=== PATIENT | female | born 1960 | race Hispanic/Latino ===

== ENCOUNTER 2018-03-05 16:58 | Observation (INO) | payer OTHER ==
[~2018-03-05] VITALS: Ht 157.5 cm; Wt 95.7 kg
[2018-03-05 18:13] LABS: PREGNANCY TEST, URINE NEGATIVE (NEGATIVE)
[2018-03-05 18:15] LABS: BASOPHILS # (AUTO) 0.1 (0.0-0.1); BASOPHILS % 0.5 % (0.0-1.0); EOSINOPHILS # (AUTO) 0.1 (0.0-0.4); EOSINOPHILS % 0.5 % (0.0-6.0); HEMATOCRIT 43.9 % (34.2-44.1); HEMOGLOBIN 14.4 g/dL (12.0-16.0); LYMPHOCYTES # (AUTO) 1.8 (1.0-3.2); MEAN CORPUSCULAR HEMOGLOBIN 29.6 pg (28-32); MEAN CORPUSCULAR HGB CONC 32.8 g/dL (31-35); MEAN CORPUSCULAR VOLUME 90.1 fL (81-99); MONOCYTES # (AUTO) 0.9 (0.2-0.8); MONOCYTES % 8.5 % (4.4-11.3); NEUTROPHILS # (AUTO) 7.6 (2.1-6.9); NEUTROPHILS % 73.1 % (38.7-80.0); PLATELET COUNT 219 x10e3/uL (140-360); RED BLOOD COUNT 4.87 x10e6/uL (3.6-5.1); RED CELL DISTRIBUTION WIDTH 13.6 % (11.7-14.4)
[2018-03-05 18:21] LABS: ALBUMIN 4.2 g/dL (3.5-5.0); ALBUMIN/GLOBULIN RATIO 0.9 (0.8-2.0); ANION GAP 13.2 mmol/L (8-16); CALCIUM 10.5 mg/dL (8.4-10.2); CREATININE, SERUM 1.04 mg/dL (0.57-1.11); POTASSIUM 4.2 mmol/L (3.5-5.1)
[2018-03-05 18:25] LABS: BILIRUBIN,URINE NEGATIVE (NEGATIVE); CLARITY,URINE SL CLOUDY (CLEAR); COLOR,URINE YELLOW (YELLOW); KETONES,URINE TRACE (NEGATIVE); LEUKOCYTE ESTERASE ,URINE 1+ (NEGATIVE); NITRITE,URINE NEGATIVE (NEGATIVE); PROTEIN,URINE DIPSTICK NEGATIVE (NEGATIVE); URINE UROBILINOGEN 0.2 mg/dL (0.2 - 1)
[2018-03-05 18:26] LABS: BACTERIA,URINE MANY /HPF; EPITHELIAL CELLS,URINE MANY /LPF
[2018-03-05 18:41] LABS: AMYLASE 45 U/L (25-125); LIPASE 14 U/L (8-78)
[2018-03-05] MEDS ORDERED: ASPIRIN 81 MG CHEW TAB PO ONE (19:15)
[2018-03-05 19:27] LABS: CREATINE KINASE 214 IU/L (29-168)
[2018-03-05] MEDS ORDERED: ACETAMINOPHEN 325 MG TAB PO ONE (20:00)
--- NOTE | 2018-03-05 20:26 | Diagnostic Imaging Report ---
CHEST SINGLE (PORTABLE), 03/05/2018 7:11 PM Technique: CHEST SINGLE (PORTABLE) Comparison: None available. Clinical history: \S\upper abd pain, radiates to left chest \S\[id number] \S\1949 Findings: See Impression Impression: 1. Mildly enlarged cardiomediastinal silhouette, accentuated by portable technique. Recommend upright PA and lateral to better assess the mediastinum. 2. No consolidation or edema. No pleural effusion or pneumothorax. Signed by: Dr Kellee Aguirre MD on 03/05/2018 8:22 PM
[2018-03-05] MEDS ORDERED: ONDANSETRON HCL INJ 2 MG/ML VIAL IV PRN (20:45)
--- OUTSIDE RECORDS SUMMARY | 2018-03-05 21:36 | XMS REPORT ---
Author Author [facility] Address Unknown Phone Unavailable Care Team Providers Care Advanced Solutions Architect Name Role Phone MAYRA CORONADO Unavailable Unavailable Problems This patient has no known problems. Allergies, Adverse Reactions, Alerts This patient has no known allergies or adverse reactions. Medications This patient has no known medications. 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 Clinical history: S upper abd pain, radiates to left chest S [id number] S 1949 Findings: See Impression Impression: 1. Mildly enlarged cardiomediastinal silhouette, accentuated by portable technique. Recommend upright PA and lateral to better assess the mediastinum. 2. No consolidation or edema. No pleural effusion or pneumothorax. Signed by: Dr Rowan Aguirre MD on 03/05/2018 8:22 PM Dictated By: ROWAN AGUIRRE MD 21 Transcribed By: DIANA on 03/05/182021 COPY TO: MIRTHA BAH NP
[2018-03-05] MEDS: CEFTRIAXONE SOD 1 GM VIAL IV SCH (21:51)
[2018-03-05] MEDS ORDERED: ONDANSETRON HCL 4 MG ORAL DISINTEGRATING TAB PO PRN (22:00)
[2018-03-05] MEDS ORDERED: ONDANSETRON HCL 4 MG ORAL DISINTEGRATING TAB PO STA (22:00)
[2018-03-05] MEDS ORDERED: ACETAMINOPHEN 325 MG TAB PO PRN (22:15)
[2018-03-05] MEDS ORDERED: MORPHINE SULFATE 2 MG/ML SYR IV PRN (22:15)
[2018-03-05 22:32] VITALS: BP 121/69
[2018-03-05 22:36] VITALS: BP 121/69
[2018-03-05 22:38] VITALS: BP 121/69
[2018-03-06 01:54] LABS: CREATINE KINASE 154 IU/L (29-168)
[2018-03-06 04:00] VITALS: BP 111/66
[2018-03-06 06:02] LABS: BASOPHILS % 0.2 % (0.0-1.0); EOSINOPHILS # (AUTO) 0.1 (0.0-0.4); HEMATOCRIT 40.7 % (34.2-44.1); HEMOGLOBIN 13.2 g/dL (12.0-16.0); LYMPHOCYTES # (AUTO) 2.1 (1.0-3.2); LYMPHOCYTES % 22.4 % (18.0-39.1); MEAN CORPUSCULAR HEMOGLOBIN 29.7 pg (28-32); MEAN CORPUSCULAR HGB CONC 32.4 g/dL (31-35); MEAN CORPUSCULAR VOLUME 91.5 fL (81-99); MONOCYTES % 11.1 % (4.4-11.3); PLATELET COUNT 202 x10e3/uL (140-360); RED BLOOD COUNT 4.45 x10e6/uL (3.6-5.1); RED CELL DISTRIBUTION WIDTH 13.7 % (11.7-14.4)
[2018-03-06 06:25] LABS: ALANINE AMINOTRANSFERASE 22 IU/L (0-55); ALBUMIN 3.6 g/dL (3.5-5.0); ALBUMIN/GLOBULIN RATIO 0.8 (0.8-2.0); ALKALINE PHOSPHATASE 89 IU/L (40-150); ANION GAP 12.3 mmol/L (8-16); BLOOD UREA NITROGEN 14 mg/dL (7-26); BUN/CREATININE RATIO 16 (6-25); CALCIUM 9.9 mg/dL (8.4-10.2); CARBON DIOXIDE 30 mmol/L (22-29); CHLORIDE 103 mmol/L (98-107); CHOL/HDL RATIO 4.2 (3.0-3.6); CHOLESTEROL 226 MD/DL (0-199); CREATININE, SERUM 0.88 mg/dL (0.57-1.11); EST GLOMERULAR FILTRATION RATE > 60 ML/MIN (60-); GLUCOSE 102 mg/dL (74-118); HDL CHOLESTEROL 54 MG/DL (40-60); LDL CHOLESTEROL 156 MG/DL (60-130); POTASSIUM 4.3 mmol/L (3.5-5.1); SODIUM 141 mmol/L (136-145); TRIGLYCERIDES 80 MG/DL (0-149)
[2018-03-06 08:12] VITALS: BP 123/70
[2018-03-06] MEDS: FAMOTIDINE 20 MG TAB PO SCH ×2 (08:15→16:40)
[2018-03-06] MEDS: ASPIRIN 325 MG TAB EC PO SCH (08:15)
[2018-03-06] MEDS: CEFTRIAXONE SOD 1 GM VIAL IV SCH ×2 (08:15→20:44)
--- NOTE | 2018-03-06 08:24 | History and Physical ---
PRIMARY CARE PHYSICIAN: None CHIEF COMPLAINT: Epigastric discomfort. HISTORY OF PRESENT ILLNESS: This is a 57-year-old woman with no significant medical history, now developing epigastric discomfort the following day after having pizza at night. She states that the pain radiated to her back. Denies any nausea, vomiting or diarrhea. Now, her other symptoms have completely resolved. Here she was found to have a urinary tract infection. She is admitted for further evaluation and management. PAST MEDICAL HISTORY: None. PAST SURGICAL HISTORY: None. ALLERGIES: PER ELECTRONIC MEDICAL RECORD. FAMILY HISTORY/SOCIAL HISTORY: The patient is . She has 3 children. No alcohol, illicits or cigarettes. MEDICATIONS: Per electronic medical record. REVIEW OF SYSTEMS: Denies any dizziness or chest pain. PHYSICAL EXAMINATION VITAL SIGNS: Reviewed. GENERAL: A tired-appearing woman resting in bed. HEENT: Anicteric. Pupils respond to light. No oral lesions. CARDIOVASCULAR: Normal S1 and S2. Regular rhythm and rate. LUNGS: Moderate breath sounds. ABDOMEN: Soft, nontender and nondistended. EXTREMITIES: No edema or calf tenderness. NEUROLOGICAL: Alert and oriented times 3. Moving all extremities. SKIN: Dry. PSYCHIATRIC: Normal affect. LABS: Reviewed. MEDICATIONS: Reviewed. ASSESSMENT: A 57-year-old woman with: 1. Fever. 2. Urinary tract infection. 3. Acute kidney injury. 4. Obesity. PLAN 1. Obtain hemoglobin A1c and lipid panel. 2. Continue Pepcid. 3. Continue ceftriaxone. 4. Use Lovenox prophylactically. 5. Obtain urine culture. 6. Prophylaxis with Lovenox and Pepcid. 7. Disposition. Follow up cultures. Follow up renal function. Job#: [id number] [place]
[2018-03-06 09:22] LABS: CREATINE KINASE 129 IU/L (29-168)
[2018-03-06 12:17] VITALS: BP 123/69
[2018-03-06 16:29] VITALS: BP 111/71
[2018-03-06] MEDS: ENOXAPARIN SOD INJ 40 MG/0.4 ML SYR SC SCH (16:40)
[2018-03-06 20:00] VITALS: BP 106/67
[2018-03-06 23:01] VITALS: BP 106/67
[2018-03-07] VITALS (8 sets, daily range): BP systolic 108–135; BP diastolic 64–90
[2018-03-07] MEDS: ASPIRIN 325 MG TAB EC PO SCH (08:33)
[2018-03-07] MEDS: CEFTRIAXONE SOD 1 GM VIAL IV SCH ×2 (08:33→20:50)
[2018-03-07] MEDS: FAMOTIDINE 20 MG TAB PO SCH ×2 (08:33→17:00)
--- NOTE | 2018-03-07 12:08 | Progress Note ---
DATE: March 07, 2018 TIME: 7:30 a.m. OVERNIGHT: Feeling a little better. Some right lower abdominal pain. REVIEW OF SYSTEMS: Denies any dizziness or chest pain. PHYSICAL EXAMINATION VITAL SIGNS: Reviewed. GENERAL: A tired-appearing woman resting in bed. HEENT: Anicteric. CARDIOVASCULAR: Normal S1 and S2. LUNGS: Moderate breath sounds. ABDOMEN: Soft and nondistended. She has tenderness in the right lower quadrant. EXTREMITIES: No edema. SKIN: Dry. PSYCHIATRIC: Flat affect. LABS: Reviewed. MEDICATIONS: Reviewed. ASSESSMENT: A 57-year-old woman with: 1. Fever. 2. Urinary tract infection. 3. Acute kidney injury. 4. Obesity. 5. Right lower abdominal pain. PLAN 1. Continue IV ceftriaxone. 2. Follow up cultures. 3. LDL 156, triglycerides 80. 4. Blood glucose is 90-102. No need to check hemoglobin A1c. 5. Discharge planning. Job#: [id number] [place]
[2018-03-07] MEDS: ENOXAPARIN SOD INJ 40 MG/0.4 ML SYR SC SCH (17:00)
[2018-03-08 00:30] VITALS: BP 108/64
[2018-03-08 05:00] VITALS: BP 113/70
[2018-03-08] MEDS: FAMOTIDINE 20 MG TAB PO SCH (07:42)
[2018-03-08 08:00] VITALS: BP 130/72
[2018-03-08] MEDS ORDERED: FAMOTIDINE20 MG PO (08:25)
[2018-03-08] MEDS ORDERED: KEFLEX500 MG PO (08:25)
--- NOTE | 2018-03-10 09:11 | Discharge Summary ---
PRINCIPAL DIAGNOSES 1. Urinary tract infection. 2. Fever related to urinary tract infection. 3. Acute kidney injury. 4. Obesity. 5. Right lower abdominal pain. SECONDARY DIAGNOSIS: Obesity. CHIEF COMPLAINT: Epigastric discomfort. HISTORY OF PRESENT ILLNESS: A 57-year-old woman with epigastric discomfort. Refer to the H and P for further details. HOSPITAL COURSE: The patient was found to have a urinary tract infection and fever associated. Had acute kidney injury and received IV fluids and IV antibiotics. Had lower abdominal pain which resolved. The patient did well and subsequently transitioned home. DISCHARGE MEDICATIONS: Per electronic medical record. FOLLOWUP: Primary care doctor in 1 week. CONDITION ON DISCHARGE: Stable and improved. DISCHARGE LOCATION: Home. REHANA SAINZ MD Job#: [id number] [place]
== END 2018-03-08 10:08 | disposition home or self-care (01) ==
LOC: ER 16:58 → IMCU 21:33
PROVIDERS: ADMIT Internal Medicine; ATTEND Internal Medicine
DX: N30.01 Acute cystitis with hematuria (principal); R06.00 Dyspnea, unspecified; N17.9 Acute kidney failure, unspecified; E66.9 Obesity, unspecified; B96.20 Unspecified Escherichia coli [E. coli] as the cause of diseases classified elsewhere
CPT/HCPCS: 36415; 71045; 80053 ×2; 80061; 81001; 81025; 82150; 82550 ×2; 82553 ×2; 83690; 83880; 84484 ×2; 85025 ×2; 87086; 87186; 93005; 99284; G0378 ×4; J0696 ×3; J1650 ×2; J2270

== ENCOUNTER 2019-01-14 13:28 | Emergency (ER) | payer OTHER ==
[~2019-01-14] VITALS: Ht 157.5 cm; Wt 93.0 kg
[~2019-01-14 13:28] MED LIST: FAMOTIDINE20 MG PO; KEFLEX500 MG PO
[2019-01-14] MEDS ORDERED: IBUPROFEN 400 MG TAB PO ONE (14:30)
[2019-01-14 15:26] LABS: CLARITY,URINE HAZY (CLEAR); COLOR,URINE STRAW (YELLOW); KETONES,URINE NEGATIVE (NEGATIVE); LEUKOCYTE ESTERASE ,URINE NEGATIVE (NEGATIVE); NITRITE,URINE NEGATIVE (NEGATIVE); PROTEIN,URINE DIPSTICK NEGATIVE (NEGATIVE)
[2019-01-14 15:27] LABS: BILIRUBIN,URINE NEGATIVE (NEGATIVE); URINE UROBILINOGEN 0.2 mg/dL (0.2 - 1)
[2019-01-14 15:38] LABS: EPITHELIAL CELLS,URINE MANY /LPF; RBC,URINE >50 /HPF (0-5)
[2019-01-14 15:40] LABS: BACTERIA,URINE RARE /HPF; WBC,URINE (MAN) 0-5 /HPF (0-5)
--- NOTE | 2019-01-14 16:46 | Diagnostic Imaging Report ---
EXAMINATION: CT of the abdomen and pelvis without contrast. TECHNIQUE: Helical CT images of the abdomen and pelvis were performed from the lung bases to the lesser trochanters. No intravenous contrast was given per renal stone protocol. Coronal and sagittal reformatted images were obtained.Dose modulation, iterative reconstruction, and/or weight based adjustment of the mA/kV was utilized to reduce the radiation dose to as low as reasonably achievable. COMPARISON: None. CLINICAL HISTORY:Pain DISCUSSION: ABSENCE OF INTRAVENOUS CONTRAST DECREASES SENSITIVITY FOR DETECTION OF FOCAL LESIONS AND VASCULAR PATHOLOGY. ABDOMEN/PELVIS: LOWER THORAX: Unremarkable. HEPATOBILIARY:No focal hepatic lesions. No biliary ductal dilation. The gallbladder is normal. SPLEEN: No splenomegaly. PANCREAS: No focal masses or ductal dilatation. ADRENALS: No adrenal nodules. KIDNEYS/URETERS: Punctate right renal calculus. No hydronephrosis. PELVIC ORGANS/BLADDER: The bladder is normal. PERITONEUM/RETROPERITONEUM: No free air or fluid. LYMPH NODES: No intra-abdominal,retroperitoneal, pelvic or inguinal lymphadenopathy. VESSELS: Limited evaluation GI TRACT: No distention or wall thickening. Appendix normal. BONES AND SOFT TISSUES: No bony destructive lesions. No soft tissue abnormalities. IMPRESSION: No acute CT finding. Signed by: Dr. Saul Lopez M.D. on 01/14/2019 4:42 PM
[2019-01-14] MEDS ORDERED: BELLADONNA/OPIUM 30 MG SUPP RC ONE (18:00)
--- NOTE | 2019-01-14 20:00 | Diagnostic Imaging Report ---
EXAM: Transabdominal and Transvaginal Pelvic Ultrasound with Duplex INDICATION: ^R/O TORSION patient states that she had a oophorectomy in 1982 but does not know which side. Mid to left pelvic pain since last night. COMPARISON: None TECHNIQUE: Grayscale transverse and sagittal transabdominal and transvaginal images were obtained of the pelvis. Transvaginal imaging was medically necessary to better evaluate the endometrium and the adnexa. The ovaries were examined with grayscale, color Doppler, and spectral waveform analysis. CLINICAL HISTORY: 58 year old A2; last menstrual period: 3 years ago. FINDINGS: Uterus Orientation: Normal Size: 7.5 x 4.2 x 4.9 cm, Normal Mass: None Cervix: Normal Endometrium: Thickness: 0.2 cm, atrophy. Appearance: Homogeneous echotexture without focal thickening. Right ovary: Not visualized. Left ovary: Size: 2.2 x 2.0 x 2.2 cm Mass/Cyst: None Vascularity: Normal venous and arterial color flow and waveforms. Adnexa: Normal Cul-de-sac: No free fluid IMPRESSION: 1. Arterial and venous flow is identified in left ovary. Low likelihood of ovarian torsion. 2. Unremarkable pelvic ultrasound exam. 3. Right ovary is not visualized. This may correlate with patient's history of oophorectomy in 1982. Signed by: Dr. Syed Leigh M.D. on 01/14/2019 7:56 PM
[2019-01-14] MEDS ORDERED: HYDROMORPHONE 1MG/1ML INJ IV STA (20:34)
[2019-01-14] MEDS ORDERED: SODIUM CHLORIDE 0.9% 1000ML 1,000 ML IV STA (20:34)
[2019-01-14] MEDS ORDERED: ONDANSETRON HCL INJ 2MG/ML 2ML 2 MG/ML VIAL IV STA (20:34)
[2019-01-14] MEDS ORDERED: HYDROMORPHONE 2MG/ML 2 MG/ML ML IV ONE (21:00)
[2019-01-14 21:02] LABS: BASOPHILS % 0.5 % (0.0-1.0); EOSINOPHILS # (AUTO) 0.1 (0.0-0.4); EOSINOPHILS % 1.5 % (0.0-6.0); HEMATOCRIT 43.3 % (34.2-44.1); HEMOGLOBIN 14.1 g/dL (12.0-16.0); LYMPHOCYTES # (AUTO) 2.1 (1.0-3.2); LYMPHOCYTES % 27.4 % (18.0-39.1); MEAN CORPUSCULAR HEMOGLOBIN 29.4 pg (28-32); MEAN CORPUSCULAR HGB CONC 32.6 g/dL (31-35); MEAN CORPUSCULAR VOLUME 90.4 fL (81-99); MONOCYTES # (AUTO) 0.5 (0.2-0.8); MONOCYTES % 6.7 % (4.4-11.3); NEUTROPHILS # (AUTO) 4.9 (2.1-6.9); NEUTROPHILS % 63.6 % (38.7-80.0); PLATELET COUNT 244 x10e3/uL (140-360); RED BLOOD COUNT 4.79 x10e6/uL (3.6-5.1); RED CELL DISTRIBUTION WIDTH 13.7 % (11.7-14.4)
[2019-01-14 21:17] LABS: ALANINE AMINOTRANSFERASE 24 IU/L (0-55); ALBUMIN 3.8 g/dL (3.5-5.0); ALBUMIN/GLOBULIN RATIO 0.9 (0.8-2.0); ALKALINE PHOSPHATASE 81 IU/L (40-150); ANION GAP 11.3 mmol/L (8-16); BLOOD UREA NITROGEN 12 mg/dL (7-26); BUN/CREATININE RATIO 14 (6-25); CALCIUM 9.9 mg/dL (8.4-10.2); CARBON DIOXIDE 30 mmol/L (22-29); CHLORIDE 101 mmol/L (98-107); CREATININE, SERUM 0.84 mg/dL (0.57-1.11); EST GLOMERULAR FILTRATION RATE > 60 ML/MIN (60-); GLUCOSE 92 mg/dL (74-118); POTASSIUM 4.3 mmol/L (3.5-5.1); SODIUM 138 mmol/L (136-145)
[2019-01-14 21:59] VITALS: BP 132/77
[2019-01-15] MEDS ORDERED: CEFAZOLIN SOD 1 GM/NS 50ML 50 ML IV ONE (09:10)
== END 2019-01-14 22:10 | disposition home or self-care (01) ==
LOC: ER 13:28
DX: R10.30 Lower abdominal pain, unspecified (principal); R11.0 Nausea
CPT/HCPCS: 36415; 74176; 76830; 80053; 81001; 85025; 87086; 93976; 99284; J1170; J2405; J7030

== ENCOUNTER → 2019-03-26 | Outpatient (CLI) | payer OTHER | LOC: MAMMO 08:14 | PROVIDERS: ATTEND Internal Medicine | DX: Z12.31 Encounter for screening mammogram for malignant neoplasm of breast (principal) | CPT/HCPCS: 77067 ==

== ENCOUNTER → 2020-03-24 | Outpatient (CLI) | payer OTHER | LOC: MAMMO 07:45 | PROVIDERS: ATTEND Internal Medicine | DX: Z12.31 Encounter for screening mammogram for malignant neoplasm of breast (principal) | CPT/HCPCS: 77067 ==

== ENCOUNTER → 2021-01-21 | Outpatient (CLI) | payer OTHER | LOC: MAMMO 09:54 | PROVIDERS: ATTEND Internal Medicine | DX: Z12.31 Encounter for screening mammogram for malignant neoplasm of breast (principal) ==

== ENCOUNTER → 2021-03-24 | Outpatient (CLI) | payer OTHER | LOC: MAMMO 09:36 | PROVIDERS: ATTEND Internal Medicine | DX: Z12.31 Encounter for screening mammogram for malignant neoplasm of breast (principal) | CPT/HCPCS: 77067 ==

== ENCOUNTER 2024-11-09 19:20 | Emergency (ER) | payer OTHER ==
[~2024-11-09] VITALS: Ht 157.5 cm; Wt 98.9 kg
[2024-11-09] MEDS ORDERED: IOPAMIDOL 370 MG/ML 100 ML INFUS..BTL INJ ONE (20:56)
[2024-11-09] MEDS: SODIUM CHLORIDE 0.9% 1000ML 1,000 ML IV ONE (21:30)
[2024-11-09] MEDS: ONDANSETRON HCL INJ 2MG/ML 2ML 2 MG/ML VIAL IV STA (21:31)
[2024-11-09] MEDS: KETOROLAC TROMETHAMINE 30 MG/ML VIAL IV STA (21:31)
[2024-11-09] MEDS: FAMOTIDINE 20 MG/2 ML VIAL IV STA (21:31)
[2024-11-09 23:41] VITALS: PULSE 61; RESP 18; TEMP 97.2
[2024-11-09] MEDS ORDERED: BENZONATATE200 MG PO (23:43)
[2024-11-09 23:55] VITALS: BP 169/66; PULSE 61; RESP 18; TEMP 97.2; O2SAT 100
== END 2024-11-09 23:55 | disposition home or self-care (01) ==
LOC: FSED 20:26
DX: R10.31 Right lower quadrant pain (principal); E86.0 Dehydration; E86.1 Hypovolemia; K57.90 Diverticulosis of intestine, part unspecified, without perforation or abscess without bleeding; Z11.52 Encounter for screening for COVID-19
CPT/HCPCS: 0223U; 74177; 80048; 80076; 81003; 85025; 87400; 96374; 96375; 99284; J1885; J2405; J7030; Q9967